=== PATIENT | male | born 1950 | race Caucasian/White ===

== ENCOUNTER 2018-02-06 15:57 | Emergency (ER) | payer MEDICARE, OTHER ==
[2018-02-06] MEDS: ONDANSETRON 4 MG INJ IV (20:33)
[2018-02-06] MEDS: SOD CHLORIDE 0.9% 500 ML IV (20:34)
[2018-02-06] MEDS: morphine 4 MG/ML VIAL IV (20:35)
[2018-02-06 20:40] LABS: ADD MAN DIFF? NO
[2018-02-06 20:43] LABS: WHITE BLOOD COUNT 9.5 10^3/ul (4.8-10.8)
[2018-02-06 20:43] LABS: BASOPHIL # 0.1 10^3/ul (0.0-0.1); BASOPHILS % 1.4 % (0.0-2.0); EOSINOPHILS # 1.5 10^3/ul (0.0-0.5); EOSINOPHILS % 15.6 % (0.0-7.0); HEMATOCRIT 44.2 % (42.0-52.0); HEMOGLOBIN 14.9 g/dl (14.0-18.0); LYMPHOCYTES # 2.4 10^3/ul (0.8-2.9); MEAN CORPUSCULAR HEMOGLOBIN 29.3 pg (29.0-33.0); MEAN CORPUSCULAR HGB CONC 33.7 g/dl (32.0-37.0); MEAN PLATELET VOLUME 9.6 fl (7.4-10.4); MONOCYTE # 0.9 10^3/ul (0.3-0.9); MONOCYTES % 9.5 % (0.0-11.0); NEUTROPHIL # 4.5 10^3/ul (1.6-7.5); NEUTROPHILS % 47.3 % (39.0-77.0); PLATELET COUNT 258 10^3/UL (140-415); RED BLOOD COUNT 5.08 10^6/ul (4.70-6.10); RED CELL DISTRIBUTION WIDTH 12.7 % (11.5-14.5)
[2018-02-06 20:58] LABS: INR 0.94; PARTIAL THROMBOPLASTIN TIME 28.5 Sec (25.0-35.0); PROTIME 12.7 Sec (11.9-14.9)
[2018-02-06 21:02] LABS: ALANINE AMINOTRANSFERASE 29 IU/L (13-69); ALBUMIN 3.8 g/dl (3.3-4.9); ALBUMIN/GLOBULIN RATIO 1.18; ALKALINE PHOSPHATASE 52 IU/L (42-121); ANION GAP 20 (8-16); ASPARTATE AMINO TRANSFERASE 26 IU/L (15-46); BILIRUBIN,INDIRECT 0.3 mg/dl (0-1.1); BILIRUBIN,TOTAL 0.3 mg/dl (0.2-1.3); BLOOD UREA NITROGEN 15 mg/dl (7-20); CALCIUM 8.9 mg/dl (8.4-10.2); CARBON DIOXIDE 21 mmol/L (21-31); CHLORIDE 100 mmol/L (97-110); CREATINE KINASE 55 IU/L (23-200); CREATININE 1.22 mg/dl (0.61-1.24); GLUCOSE 155 mg/dl (70-220); POTASSIUM 4.5 mmol/L (3.5-5.1); SODIUM 136 mmol/L (135-144)
[2018-02-06 21:13] LABS: B-TYPE NATRIURETIC PEPTIDE 1430 PG/ML (0-125); CK INDEX 3.3; TROPONIN-I 0.022 ng/ml (0.00-0.12)
[2018-02-06 21:22] LABS: CK-MB 1.84 ng/ml (0.0-2.4)
== END 2018-02-07 00:08 | disposition home or self-care (01) ==
LOC: E/R 02-07 00:08
DX: I73.9 Peripheral vascular disease, unspecified (principal); M79.671 Pain in right foot; E11.9 Type 2 diabetes mellitus without complications; I10 Essential (primary) hypertension; I50.9 Heart failure, unspecified; J44.9 Chronic obstructive pulmonary disease, unspecified; Z79.4 Long term (current) use of insulin; Z95.1 Presence of aortocoronary bypass graft; Z87.891 Personal history of nicotine dependence
CPT/HCPCS: 73630; 80053; 82550; 82553; 82962; 83880; 84484; 85025; 85610; 85730; 93005; 93971; 96374; 96375; 99285-25

== ENCOUNTER 2018-02-19 07:44 | Inpatient (IN) | payer MEDICARE, OTHER ==
[2018-02-19 09:15] LABS: ADD MAN DIFF? NO
[2018-02-19 09:25] LABS: WHITE BLOOD COUNT 16.3 10^3/ul (4.8-10.8)
[2018-02-19 09:25] LABS: BASOPHIL # 0.1 10^3/ul (0.0-0.1); BASOPHILS % 0.7 % (0.0-2.0); EOSINOPHILS # 0.5 10^3/ul (0.0-0.5); EOSINOPHILS % 2.8 % (0.0-7.0); HEMATOCRIT 40.1 % (42.0-52.0); HEMOGLOBIN 13.4 g/dl (14.0-18.0); LYMPHOCYTES # 1.3 10^3/ul (0.8-2.9); LYMPHOCYTES % 7.9 % (15.0-51.0); MEAN CORPUSCULAR HEMOGLOBIN 29.3 pg (29.0-33.0); MEAN CORPUSCULAR HGB CONC 33.4 g/dl (32.0-37.0); MEAN CORPUSCULAR VOLUME 87.7 fl (82.0-101.0); MEAN PLATELET VOLUME 9.9 fl (7.4-10.4); MONOCYTE # 1.1 10^3/ul (0.3-0.9); NEUTROPHIL # 13.2 10^3/ul (1.6-7.5); PLATELET COUNT 308 10^3/UL (140-415); RED BLOOD COUNT 4.57 10^6/ul (4.70-6.10); RED CELL DISTRIBUTION WIDTH 12.5 % (11.5-14.5)
[2018-02-19 09:36] LABS: INR 1.03; PROTIME 13.6 Sec (11.9-14.9); PT RATIO 1.1
[2018-02-19 09:37] LABS: PARTIAL THROMBOPLASTIN TIME 39.8 Sec (25.0-35.0)
[2018-02-19 09:40] LABS: ACETAMINOPHEN < 10.0 ug/ml (10.0-30.0)
[2018-02-19 09:40] LABS: ANION GAP 14 (8-16); BLOOD UREA NITROGEN 22 mg/dl (7-20); CALCIUM 9.1 mg/dl (8.4-10.2); CARBON DIOXIDE 28 mmol/L (21-31); CHLORIDE 102 mmol/L (97-110); CREATININE 1.05 mg/dl (0.61-1.24); GLUCOSE 251 mg/dl (70-220); POTASSIUM 4.1 mmol/L (3.5-5.1); SODIUM 140 mmol/L (135-144)
[2018-02-19] MEDS ORDERED: DOCUSATE SODIUM 100 MG CAP PO (13:00)
[2018-02-19] MEDS ORDERED: ACETAMINOPHEN 325 MG TAB PO ×2 (13:00→13:30)
[2018-02-19] MEDS: IOHEXOL 100 ML (13:24)
[2018-02-19] MEDS: SOD CHLORIDE 0.9% 100 ML (13:24)
[2018-02-19] MEDS: IOHEXOL 350MG/ML 50 ML BTL (13:24)
[2018-02-19] MEDS ORDERED: NACL 0.9% 3 ML SYG IV (13:30)
[2018-02-19] MEDS ORDERED: LABETALOL HCL 20MG INJ IV (13:30)
[2018-02-19] MEDS ORDERED: HEPARIN 25000 UNITS/250 ML 250 ML IV (13:30)
[2018-02-19] MEDS ORDERED: HEPARIN 1000 UNITS/ML 10 ML INJ IV ×2 (13:30)
[2018-02-19 14:15] LABS: ADD MAN DIFF? NO
[2018-02-19 14:19] LABS: WHITE BLOOD COUNT 15.8 10^3/ul (4.8-10.8)
[2018-02-19 14:19] LABS: BASOPHIL # 0.1 10^3/ul (0.0-0.1); BASOPHILS % 0.8 % (0.0-2.0); EOSINOPHILS # 0.5 10^3/ul (0.0-0.5); EOSINOPHILS % 3.4 % (0.0-7.0); HEMATOCRIT 38.9 % (42.0-52.0); HEMOGLOBIN 12.9 g/dl (14.0-18.0); LYMPHOCYTES # 1.5 10^3/ul (0.8-2.9); LYMPHOCYTES % 9.5 % (15.0-51.0); MEAN CORPUSCULAR HEMOGLOBIN 29.5 pg (29.0-33.0); MEAN CORPUSCULAR HGB CONC 33.2 g/dl (32.0-37.0); MEAN PLATELET VOLUME 9.9 fl (7.4-10.4); MONOCYTE # 1.4 10^3/ul (0.3-0.9); MONOCYTES % 8.7 % (0.0-11.0); NEUTROPHIL # 12.1 10^3/ul (1.6-7.5); NEUTROPHILS % 76.9 % (39.0-77.0); PLATELET COUNT 266 10^3/UL (140-415); RED BLOOD COUNT 4.37 10^6/ul (4.70-6.10); RED CELL DISTRIBUTION WIDTH 12.7 % (11.5-14.5)
[2018-02-19 14:40] LABS: INR 1.05; PROTIME 13.8 Sec (11.9-14.9); PT RATIO 1.1
[2018-02-19 14:41] LABS: PARTIAL THROMBOPLASTIN TIME 40.6 Sec (25.0-35.0)
[2018-02-19] MEDS: HEPARIN 1000 UNITS/ML 10 ML INJ IV (14:58)
[2018-02-19] MEDS: ONDANSETRON 4 MG INJ IV (14:59)
[2018-02-19] MEDS: morphine 2 MG INJ IV ×2 (15:00→20:35)
[2018-02-19] MEDS: SOD CHLORIDE 0.45% 1,000 ML IV (17:34)
[2018-02-19] MEDS: INSULIN ASPART [NOVOLOG] 3 ML PEN SC ×3 (18:00→20:33)
[2018-02-19] MEDS: FAMOTIDINE 20 MG TAB PO (20:32)
[2018-02-19] MEDS: INSULIN GLARGINE [LANtus] 3 ML PEN SC (20:34)
[2018-02-20 01:22] LABS: PARTIAL THROMBOPLASTIN TIME 86.9 Sec (25.0-35.0)
[2018-02-20] MEDS: ACCU-CHEK XX (02:00)
[2018-02-20] MEDS: morphine 2 MG INJ IV ×4 (05:48→21:17)
[2018-02-20] MEDS: hydrALAzine 20 MG INJ IV (05:48)
[2018-02-20] MEDS: PANTOPRAZOLE 40 MG INJ IV (05:48)
[2018-02-20 06:52] LABS: ADD MAN DIFF? NO
[2018-02-20 06:57] LABS: BASOPHIL # 0.1 10^3/ul (0.0-0.1); BASOPHILS % 0.7 % (0.0-2.0); EOSINOPHILS # 0.8 10^3/ul (0.0-0.5); EOSINOPHILS % 5.9 % (0.0-7.0); HEMATOCRIT 36.9 % (42.0-52.0); HEMOGLOBIN 12.5 g/dl (14.0-18.0); LYMPHOCYTES # 1.8 10^3/ul (0.8-2.9); LYMPHOCYTES % 13.2 % (15.0-51.0); MEAN CORPUSCULAR HEMOGLOBIN 29.7 pg (29.0-33.0); MEAN CORPUSCULAR HGB CONC 33.9 g/dl (32.0-37.0); MEAN CORPUSCULAR VOLUME 87.6 fl (82.0-101.0); MEAN PLATELET VOLUME 9.9 fl (7.4-10.4); MONOCYTE # 1.2 10^3/ul (0.3-0.9); MONOCYTES % 8.7 % (0.0-11.0); NEUTROPHIL # 9.6 10^3/ul (1.6-7.5); NEUTROPHILS % 70.7 % (39.0-77.0); PLATELET COUNT 295 10^3/UL (140-415); RED BLOOD COUNT 4.21 10^6/ul (4.70-6.10); RED CELL DISTRIBUTION WIDTH 12.5 % (11.5-14.5)
[2018-02-20 06:57] LABS: WHITE BLOOD COUNT 13.6 10^3/ul (4.8-10.8)
[2018-02-20 07:23] LABS: ALANINE AMINOTRANSFERASE 23 IU/L (13-69); ALBUMIN 2.7 g/dl (3.3-4.9); ALBUMIN/GLOBULIN RATIO 0.84; ALKALINE PHOSPHATASE 77 IU/L (42-121); ANION GAP 9 (8-16); ASPARTATE AMINO TRANSFERASE 13 IU/L (15-46); BILIRUBIN,INDIRECT 0.2 mg/dl (0-1.1); BILIRUBIN,TOTAL 0.2 mg/dl (0.2-1.3); BLOOD UREA NITROGEN 16 mg/dl (7-20); CALCIUM 8.3 mg/dl (8.4-10.2); CARBON DIOXIDE 25 mmol/L (21-31); CHLORIDE 104 mmol/L (97-110); CHOL/HDL RATIO 5.1 RATIO; CHOLESTEROL 145 mg/dl (100-200); CREATININE 0.84 mg/dl (0.61-1.24); GLUCOSE 185 mg/dl (70-220); HDL CHOLESTEROL 28 mg/dl (30-78); LDL CHOLESTEROL,CALCULATED 65 mg/dl; MAGNESIUM 1.7 mg/dl (1.7-2.5); POTASSIUM 3.9 mmol/L (3.5-5.1); SODIUM 134 mmol/L (135-144); TOTAL PROTEIN 5.9 g/dl (6.1-8.1); TRIGLYCERIDES 262 mg/dl (0-149)
[2018-02-20 07:46] LABS: HEMOGLOBIN A1C 7.4 % (0-5.9)
[2018-02-20 08:06] LABS: PARTIAL THROMBOPLASTIN TIME 74.2 Sec (25.0-35.0)
[2018-02-20] MEDS: LISINOPRIL 10 MG TAB PO (08:17)
[2018-02-20] MEDS: INSULIN ASPART [NOVOLOG] 3 ML PEN SC ×7 (08:26→21:00)
[2018-02-20] MEDS: SOD CHLORIDE 0.45% 1,000 ML IV (08:27)
[2018-02-20] MEDS ORDERED: HEPARIN 1000 UNITS/ML 10 ML INJ IV (10:30)
[2018-02-20] MEDS ORDERED: GLUCAGON 1 MG INJ IM (10:30)
[2018-02-20] MEDS ORDERED: DEXTROSE 50% 50 ML SYRINGE IV ×2 (10:30)
[2018-02-20] MEDS ORDERED: GLUCOSE GEL 15 GRAM TUBE PO ×2 (10:30)
[2018-02-20] MEDS ORDERED: GLUCOSE GEL 15 GRAM TUBE BUCCAL (10:30)
[2018-02-20] MEDS: LISINOPRIL 20 MG TAB PO (12:09)
[2018-02-20] MEDS: HEPARIN 25000 UNITS/250 ML 250 ML IV ×3 (12:18→21:00)
[2018-02-20 16:37] LABS: INR 1.11; PROTIME 14.5 Sec (11.9-14.9); PT RATIO 1.1
[2018-02-20 16:38] LABS: PARTIAL THROMBOPLASTIN TIME 63.6 Sec (25.0-35.0)
[2018-02-20] MEDS: FAMOTIDINE 20 MG TAB PO (21:16)
[2018-02-20] MEDS: INSULIN GLARGINE [LANtus] 3 ML PEN SC (21:20)
[2018-02-20 21:36] LABS: PARTIAL THROMBOPLASTIN TIME 77.6 Sec (25.0-35.0)
[2018-02-21] MEDS: ACCU-CHEK XX (02:00)
[2018-02-21 06:51] LABS: ADD MAN DIFF? NO
[2018-02-21] MEDS: SOD CHLORIDE 0.45% 1,000 ML IV (06:51)
[2018-02-21] MEDS: PANTOPRAZOLE 40 MG INJ IV (06:51)
[2018-02-21] MEDS: morphine 2 MG INJ IV ×4 (06:51→22:44)
[2018-02-21 07:01] LABS: BASOPHIL # 0.1 10^3/ul (0.0-0.1); BASOPHILS % 0.7 % (0.0-2.0); EOSINOPHILS # 0.7 10^3/ul (0.0-0.5); EOSINOPHILS % 5.5 % (0.0-7.0); HEMATOCRIT 35.8 % (42.0-52.0); LYMPHOCYTES # 1.2 10^3/ul (0.8-2.9); LYMPHOCYTES % 9.5 % (15.0-51.0); MEAN CORPUSCULAR HEMOGLOBIN 29.3 pg (29.0-33.0); MEAN CORPUSCULAR HGB CONC 33.5 g/dl (32.0-37.0); MEAN CORPUSCULAR VOLUME 87.5 fl (82.0-101.0); MEAN PLATELET VOLUME 9.7 fl (7.4-10.4); MONOCYTE # 1.2 10^3/ul (0.3-0.9); MONOCYTES % 9.6 % (0.0-11.0); NEUTROPHILS % 74.1 % (39.0-77.0); PLATELET COUNT 314 10^3/UL (140-415); RED BLOOD COUNT 4.09 10^6/ul (4.70-6.10); RED CELL DISTRIBUTION WIDTH 12.3 % (11.5-14.5)
[2018-02-21 07:01] LABS: WHITE BLOOD COUNT 12.1 10^3/ul (4.8-10.8)
[2018-02-21 07:19] LABS: PARTIAL THROMBOPLASTIN TIME 55.6 Sec (25.0-35.0)
[2018-02-21 07:21] LABS: ANION GAP 9 (8-16); BLOOD UREA NITROGEN 15 mg/dl (7-20); CALCIUM 8.2 mg/dl (8.4-10.2); CARBON DIOXIDE 26 mmol/L (21-31); CHLORIDE 104 mmol/L (97-110); CREATININE 0.93 mg/dl (0.61-1.24); GLUCOSE 144 mg/dl (70-220); PHOSPHORUS 3.6 mg/dl (2.5-4.9); POTASSIUM 4.2 mmol/L (3.5-5.1); SODIUM 135 mmol/L (135-144)
[2018-02-21] MEDS: INSULIN ASPART [NOVOLOG] 3 ML PEN SC ×7 (08:50→17:53)
[2018-02-21] MEDS: LISINOPRIL 20 MG TAB PO (08:51)
[2018-02-21] MEDS ORDERED: IODIXANOL LOCM 100 ML BTL ×2 (09:42→10:30)
[2018-02-21] MEDS ORDERED: LIDOCAINE 1% (MDV) 20 ML INJ (09:42)
[2018-02-21] MEDS ORDERED: HEPARIN 1000 UNITS/ML 10 ML INJ (09:42)
[2018-02-21] MEDS ORDERED: MIDAZOLAM 1 MG/ML 2 ML INJ (09:42)
[2018-02-21] MEDS ORDERED: SOD CHLORIDE 0.9% 500 ML (09:43)
[2018-02-21] MEDS ORDERED: FENTAnyl 50 MCG/ML VIAL (09:43)
[2018-02-21] MEDS: LACTATED RINGER'S 1,000 ML IV ×2 (13:35→21:42)
[2018-02-21] MEDS: HEPARIN 25000 UNITS/250 ML 250 ML IV (13:37)
[2018-02-21] MEDS: ASPIRIN (EC) 81 MG TAB PO (19:00)
[2018-02-21] MEDS: INSULIN GLARGINE [LANtus] 3 ML PEN SC (20:00)
[2018-02-21] MEDS: FAMOTIDINE 20 MG TAB PO (21:42)
[2018-02-21] MEDS: SOD CHLORIDE 0.9% 1,000 ML IV (22:41)
[2018-02-22] MEDS ORDERED: INSULIN ASPART [NOVOLOG] 3 ML PEN SC ×2 (01:00→21:00)
[2018-02-22] MEDS: Insulin NOVOLOG SS MILD Algorithm (NPO/TPN/ENTERAL FEEDS) SC ×5 (01:00→17:23)
[2018-02-22] MEDS: ACCU-CHEK XX (02:00)
[2018-02-22] MEDS: PANTOPRAZOLE 40 MG INJ IV (06:13)
[2018-02-22] MEDS: morphine 2 MG INJ IV ×4 (06:35→21:23)
[2018-02-22] MEDS: INSULIN ASPART [NOVOLOG] 3 ML PEN SC ×3 (08:00→17:21)
[2018-02-22] MEDS: LISINOPRIL 20 MG TAB PO (08:18)
[2018-02-22] MEDS: SOD CHLORIDE 0.9% 1,000 ML IV (08:18)
[2018-02-22] MEDS: ASPIRIN (EC) 81 MG TAB PO (08:19)
[2018-02-22 09:45] LABS: ADD MAN DIFF? NO
[2018-02-22 09:51] LABS: WHITE BLOOD COUNT 13.4 10^3/ul (4.8-10.8)
[2018-02-22 09:51] LABS: BASOPHIL # 0.1 10^3/ul (0.0-0.1); BASOPHILS % 0.5 % (0.0-2.0); EOSINOPHILS # 0.5 10^3/ul (0.0-0.5); EOSINOPHILS % 3.7 % (0.0-7.0); HEMATOCRIT 32.2 % (42.0-52.0); HEMOGLOBIN 10.7 g/dl (14.0-18.0); LYMPHOCYTES # 1.3 10^3/ul (0.8-2.9); LYMPHOCYTES % 9.5 % (15.0-51.0); MEAN CORPUSCULAR HEMOGLOBIN 29.3 pg (29.0-33.0); MEAN CORPUSCULAR HGB CONC 33.2 g/dl (32.0-37.0); MEAN CORPUSCULAR VOLUME 88.2 fl (82.0-101.0); MEAN PLATELET VOLUME 9.8 fl (7.4-10.4); MONOCYTE # 1.4 10^3/ul (0.3-0.9); MONOCYTES % 10.1 % (0.0-11.0); NEUTROPHIL # 10.1 10^3/ul (1.6-7.5); PLATELET COUNT 322 10^3/UL (140-415); RED BLOOD COUNT 3.65 10^6/ul (4.70-6.10); RED CELL DISTRIBUTION WIDTH 12.3 % (11.5-14.5)
[2018-02-22 10:13] LABS: CREATINE KINASE 51 IU/L (23-200)
[2018-02-22 10:15] LABS: MAGNESIUM 1.9 mg/dl (1.7-2.5)
[2018-02-22 10:15] LABS: PHOSPHORUS 2.7 mg/dl (2.5-4.9)
[2018-02-22 10:17] LABS: PARTIAL THROMBOPLASTIN TIME 71.3 Sec (25.0-35.0)
[2018-02-22 10:24] LABS: ALANINE AMINOTRANSFERASE 35 IU/L (13-69); ALBUMIN 2.2 g/dl (3.3-4.9); ALBUMIN/GLOBULIN RATIO 0.84; ALKALINE PHOSPHATASE 101 IU/L (42-121); ANION GAP 10 (8-16); ASPARTATE AMINO TRANSFERASE 28 IU/L (15-46); BILIRUBIN,INDIRECT 0.2 mg/dl (0-1.1); BILIRUBIN,TOTAL 0.2 mg/dl (0.2-1.3); BLOOD UREA NITROGEN 12 mg/dl (7-20); CALCIUM 7.2 mg/dl (8.4-10.2); CARBON DIOXIDE 24 mmol/L (21-31); CHLORIDE 105 mmol/L (97-110); CHOL/HDL RATIO 4.4 RATIO; CHOLESTEROL 128 mg/dl (100-200); CREATININE 0.74 mg/dl (0.61-1.24); GLUCOSE 156 mg/dl (70-220); HDL CHOLESTEROL 29 mg/dl (30-78); LDL CHOLESTEROL,CALCULATED 62 mg/dl; POTASSIUM 4.3 mmol/L (3.5-5.1); SODIUM 135 mmol/L (135-144); TOTAL PROTEIN 4.8 g/dl (6.1-8.1); TRIGLYCERIDES 184 mg/dl (0-149)
[2018-02-22 10:25] LABS: B-TYPE NATRIURETIC PEPTIDE 3320 PG/ML (0-125)
[2018-02-22 10:27] LABS: CK INDEX 1.7; CK-MB 0.86 ng/ml (0.0-2.4); TROPONIN-I 0.018 ng/ml (0.00-0.12)
[2018-02-22 10:31] LABS: FREE T4 (FREE THYROXINE) 1.32 ng/dl (0.78-2.44)
[2018-02-22 10:48] LABS: THYROID STIMULATING HORMONE 0.742 MIU/L (0.465-4.680)
[2018-02-22] MEDS: HEPARIN 25000 UNITS/250 ML 250 ML IV ×2 (10:57→17:31)
[2018-02-22] MEDS: REGADENOSON 0.4 MG/5 ML SYG (14:24)
[2018-02-22 16:57] LABS: PARTIAL THROMBOPLASTIN TIME 53.6 Sec (25.0-35.0)
[2018-02-22] MEDS: Insulin NOVOLOG SS MILD Algorithm (SS with meals and bedtime) SC (21:00)
[2018-02-22] MEDS: FAMOTIDINE 20 MG TAB PO (21:23)
[2018-02-22] MEDS: INSULIN GLARGINE [LANtus] 3 ML PEN SC (21:30)
[2018-02-23 00:36] LABS: PARTIAL THROMBOPLASTIN TIME 43.3 Sec (25.0-35.0)
[2018-02-23] MEDS: morphine 2 MG INJ IV ×4 (00:36→20:58)
[2018-02-23] MEDS: HEPARIN 1000 UNITS/ML 10 ML INJ IV (01:00)
[2018-02-23] MEDS: HEPARIN 25000 UNITS/250 ML 250 ML IV ×3 (01:02→16:41)
[2018-02-23] MEDS: ACCUCHECK AT 2AM (Patients on SS coverage) XX (02:00)
[2018-02-23] MEDS: PANTOPRAZOLE 40 MG INJ IV (06:12)
[2018-02-23] MEDS: Insulin NOVOLOG SS MILD Algorithm (SS with meals and bedtime) SC ×4 (07:30→21:00)
[2018-02-23] MEDS: LISINOPRIL 20 MG TAB PO ×2 (08:22→20:56)
[2018-02-23] MEDS: ASPIRIN (EC) 81 MG TAB PO (08:22)
[2018-02-23] MEDS: INSULIN ASPART [NOVOLOG] 3 ML PEN SC ×3 (08:23→17:21)
[2018-02-23] MEDS: HYDROCODONE/APAP (5/325) TAB PO ×2 (08:24→16:38)
[2018-02-23 08:50] LABS: ADD MAN DIFF? NO
[2018-02-23 08:54] LABS: ABNORMAL IP MESSAGE 1; BASOPHIL # 0.1 10^3/ul (0.0-0.1); BASOPHILS % 0.5 % (0.0-2.0); EOSINOPHILS # 0.6 10^3/ul (0.0-0.5); EOSINOPHILS % 3.9 % (0.0-7.0); HEMATOCRIT 34.3 % (42.0-52.0); HEMOGLOBIN 11.1 g/dl (14.0-18.0); LYMPHOCYTES # 1.4 10^3/ul (0.8-2.9); LYMPHOCYTES % 8.8 % (15.0-51.0); MEAN CORPUSCULAR HEMOGLOBIN 28.9 pg (29.0-33.0); MEAN CORPUSCULAR HGB CONC 32.4 g/dl (32.0-37.0); MEAN CORPUSCULAR VOLUME 89.3 fl (82.0-101.0); MONOCYTE # 1.6 10^3/ul (0.3-0.9); NEUTROPHIL # 11.7 10^3/ul (1.6-7.5); NEUTROPHILS % 75.3 % (39.0-77.0); PLATELET COUNT 381 10^3/UL (140-415); POSITIVE DIFF @See below; RED BLOOD COUNT 3.84 10^6/ul (4.70-6.10); RED CELL DISTRIBUTION WIDTH 12.3 % (11.5-14.5)
[2018-02-23 08:54] LABS: WHITE BLOOD COUNT 15.5 10^3/ul (4.8-10.8)
[2018-02-23 09:43] LABS: PARTIAL THROMBOPLASTIN TIME 98.9 Sec (25.0-35.0)
[2018-02-23] MEDS: FAMOTIDINE 20 MG TAB PO (20:58)
[2018-02-23] MEDS: INSULIN GLARGINE [LANtus] 3 ML PEN SC (21:09)
[2018-02-23 23:06] LABS: PARTIAL THROMBOPLASTIN TIME 24.2 Sec (25.0-35.0)
[2018-02-24] MEDS: HEPARIN 1000 UNITS/ML 10 ML INJ IV ×2 (00:55→16:42)
[2018-02-24] MEDS: HEPARIN 25000 UNITS/250 ML 250 ML IV ×4 (00:55→16:45)
[2018-02-24] MEDS: morphine 2 MG INJ IV ×5 (00:57→21:36)
[2018-02-24] MEDS: ACCUCHECK AT 2AM (Patients on SS coverage) XX (02:00)
[2018-02-24] MEDS: HYDROCODONE/APAP (5/325) TAB PO ×2 (05:21→21:36)
[2018-02-24] MEDS: PANTOPRAZOLE 40 MG INJ IV (05:22)
[2018-02-24 07:20] LABS: ADD MAN DIFF? NO
[2018-02-24 07:24] LABS: ABNORMAL IP MESSAGE 1; BASOPHIL # 0.1 10^3/ul (0.0-0.1); BASOPHILS % 0.5 % (0.0-2.0); EOSINOPHILS # 0.7 10^3/ul (0.0-0.5); EOSINOPHILS % 3.7 % (0.0-7.0); HEMATOCRIT 31.9 % (42.0-52.0); HEMOGLOBIN 10.4 g/dl (14.0-18.0); LYMPHOCYTES # 1.7 10^3/ul (0.8-2.9); LYMPHOCYTES % 9.6 % (15.0-51.0); MEAN CORPUSCULAR HEMOGLOBIN 29.1 pg (29.0-33.0); MEAN CORPUSCULAR HGB CONC 32.6 g/dl (32.0-37.0); MEAN CORPUSCULAR VOLUME 89.4 fl (82.0-101.0); MEAN PLATELET VOLUME 9.8 fl (7.4-10.4); MONOCYTE # 1.6 10^3/ul (0.3-0.9); MONOCYTES % 9.2 % (0.0-11.0); NEUTROPHIL # 13.2 10^3/ul (1.6-7.5); NEUTROPHILS % 75.2 % (39.0-77.0); PLATELET COUNT 395 10^3/UL (140-415); POSITIVE DIFF @See below; RED BLOOD COUNT 3.57 10^6/ul (4.70-6.10); RED CELL DISTRIBUTION WIDTH 12.7 % (11.5-14.5)
[2018-02-24 07:24] LABS: WHITE BLOOD COUNT 17.6 10^3/ul (4.8-10.8)
[2018-02-24] MEDS: Insulin NOVOLOG SS MILD Algorithm (SS with meals and bedtime) SC ×4 (07:30→21:00)
[2018-02-24] MEDS: ASPIRIN (EC) 81 MG TAB PO (08:35)
[2018-02-24] MEDS: INSULIN ASPART [NOVOLOG] 3 ML PEN SC ×3 (08:35→16:54)
[2018-02-24] MEDS: SPIRONOLACTONE 25 MG TAB PO (08:36)
[2018-02-24] MEDS: LISINOPRIL 20 MG TAB PO ×2 (08:36→21:30)
[2018-02-24 08:52] LABS: PARTIAL THROMBOPLASTIN TIME 129.8 Sec (25.0-35.0)
[2018-02-24] MEDS: FAMOTIDINE 20 MG TAB PO (21:29)
[2018-02-24] MEDS: INSULIN GLARGINE [LANtus] 3 ML PEN SC (21:49)
[2018-02-24 23:54] LABS: PARTIAL THROMBOPLASTIN TIME 98.3 Sec (25.0-35.0)
[2018-02-25] MEDS: ACCUCHECK AT 2AM (Patients on SS coverage) XX
[2018-02-25] MEDS: PANTOPRAZOLE 40 MG INJ IV (05:15)
[2018-02-25] MEDS: Insulin NOVOLOG SS MILD Algorithm (SS with meals and bedtime) SC ×4 (07:30→21:00)
[2018-02-25] MEDS ORDERED: GELATIN SIZE 100 SPONGE (07:41)
[2018-02-25] MEDS ORDERED: THROMBIN 5000 UNIT VIAL (07:41)
[2018-02-25] MEDS ORDERED: HEPARIN 1000 UNITS/ML 10 ML INJ ×2 (07:42→09:47)
[2018-02-25] MEDS: INSULIN ASPART [NOVOLOG] 3 ML PEN SC ×2 (07:55→17:36)
[2018-02-25] MEDS: SOD CHLORIDE 0.9% 250 ML IV* (08:00)
[2018-02-25] MEDS ORDERED: FENTAnyl 50 MCG/ML VIAL ×2 (08:08→11:33)
[2018-02-25] MEDS: HEPARIN 1000 UNITS/ML 10 ML INJ IRR (08:15)
[2018-02-25] MEDS: SPIRONOLACTONE 25 MG TAB PO (09:00)
[2018-02-25] MEDS: LISINOPRIL 20 MG TAB PO ×2 (09:00→21:01)
[2018-02-25] MEDS: ASPIRIN (EC) 81 MG TAB PO (09:00)
[2018-02-25] MEDS: GELATIN SIZE 100 SPONGE TOP (10:27)
[2018-02-25] MEDS: THROMBIN 5000 UNIT VIAL TOP (10:28)
[2018-02-25] MEDS ORDERED: CEFAZOLIN 1 GM INJ (11:17)
[2018-02-25] MEDS ORDERED: SUGAMMADEX SODIUM 200 MG/2 ML VIAL IV (11:17)
[2018-02-25] MEDS ORDERED: ETOMIDATE 20 MG INJ (11:17)
[2018-02-25] MEDS ORDERED: SUCCINYLCHOLINE CHLORIDE 100 MG/5 ML SYG IV (11:17)
[2018-02-25] MEDS ORDERED: PROPOFOL 20 ML (11:17)
[2018-02-25] MEDS ORDERED: ROCURONIUM 50 MG INJ (11:17)
[2018-02-25] MEDS ORDERED: hydrALAzine 20 MG INJ (11:27)
[2018-02-25] MEDS ORDERED: METOCLOPRAMIDE 10 MG INJ IV (11:30)
[2018-02-25] MEDS ORDERED: ONDANSETRON 4 MG INJ IV (11:30)
[2018-02-25] MEDS ORDERED: LABETALOL HCL 20MG INJ IV (11:30)
[2018-02-25] MEDS ORDERED: HYDROmorphONE (0.2 MG/ML) 10ML SYG IV ×2 (11:30)
[2018-02-25] MEDS: DIPHENHYDRAMINE 50 MG INJ IV (12:26)
[2018-02-25] MEDS: FENTAnyl 50 MCG/ML VIAL IV ×3 (12:34→15:14)
[2018-02-25] MEDS: HEPARIN 25000 UNITS/250 ML 250 ML IV (13:39)
[2018-02-25] MEDS: HYDROmorphONE (0.2 MG/ML) 10ML SYG IV (13:46)
[2018-02-25] MEDS: hydrALAzine 20 MG INJ IV ×2 (14:41→17:35)
[2018-02-25] MEDS: morphine 2 MG INJ IV ×3 (16:06→22:55)
[2018-02-25] MEDS: LACTATED RINGER'S 1,000 ML IV (16:06)
[2018-02-25 16:42] LABS: ADD MAN DIFF? NO
[2018-02-25 16:43] LABS: WHITE BLOOD COUNT 19.5 10^3/ul (4.8-10.8)
[2018-02-25 16:43] LABS: ABNORMAL IP MESSAGE 1; BASOPHIL # 0.1 10^3/ul (0.0-0.1); BASOPHILS % 0.5 % (0.0-2.0); EOSINOPHILS # 0.8 10^3/ul (0.0-0.5); EOSINOPHILS % 3.8 % (0.0-7.0); HEMATOCRIT 32.3 % (42.0-52.0); HEMOGLOBIN 10.5 g/dl (14.0-18.0); LYMPHOCYTES # 1.8 10^3/ul (0.8-2.9); LYMPHOCYTES % 9.3 % (15.0-51.0); MEAN CORPUSCULAR HGB CONC 32.5 g/dl (32.0-37.0); MEAN CORPUSCULAR VOLUME 89.2 fl (82.0-101.0); MEAN PLATELET VOLUME 9.4 fl (7.4-10.4); MONOCYTE # 1.7 10^3/ul (0.3-0.9); MONOCYTES % 8.6 % (0.0-11.0); NEUTROPHIL # 14.8 10^3/ul (1.6-7.5); PLATELET COUNT 497 10^3/UL (140-415); POSITIVE DIFF @See below; RED BLOOD COUNT 3.62 10^6/ul (4.70-6.10); RED CELL DISTRIBUTION WIDTH 13.1 % (11.5-14.5)
[2018-02-25] MEDS ORDERED: HEPARIN 1000 UNITS/ML 10 ML INJ IV (17:30)
[2018-02-25] MEDS: FAMOTIDINE 20 MG TAB PO (21:01)
[2018-02-25] MEDS: INSULIN GLARGINE [LANtus] 3 ML PEN SC (21:37)
[2018-02-25 23:37] LABS: INR 1.16; PT RATIO 1.2
[2018-02-25 23:38] LABS: PARTIAL THROMBOPLASTIN TIME 39.3 Sec (25.0-35.0)
[2018-02-26] MEDS: HEPARIN 1000 UNITS/ML 10 ML INJ IV (00:06)
[2018-02-26] MEDS: HEPARIN 25000 UNITS/250 ML 250 ML IV (00:21)
[2018-02-26] MEDS: LACTATED RINGER'S 1,000 ML IV ×2 (00:50→05:54)
[2018-02-26] MEDS: ACCUCHECK AT 2AM (Patients on SS coverage) XX (02:00)
[2018-02-26 04:55] LABS: PARTIAL THROMBOPLASTIN TIME 84.9 Sec (25.0-35.0)
[2018-02-26] MEDS: PANTOPRAZOLE 40 MG INJ IV (05:54)
[2018-02-26] MEDS: Insulin NOVOLOG SS MILD Algorithm (SS with meals and bedtime) SC ×4 (08:09→20:53)
[2018-02-26] MEDS: INSULIN ASPART [NOVOLOG] 3 ML PEN SC ×3 (08:11→17:29)
[2018-02-26] MEDS: ASPIRIN (EC) 81 MG TAB PO (08:48)
[2018-02-26] MEDS: SPIRONOLACTONE 25 MG TAB PO (08:48)
[2018-02-26] MEDS: LISINOPRIL 20 MG TAB PO ×2 (08:49→20:53)
[2018-02-26] MEDS: HYDROCODONE/APAP (5/325) TAB PO ×3 (11:42→23:22)
[2018-02-26] MEDS: APIXABAN 5 MG TABLET PO ×2 (11:52→20:52)
[2018-02-26] MEDS: INSULIN GLARGINE [LANtus] 3 ML PEN SC (20:49)
[2018-02-26] MEDS: LACTOBACILLUS RHAMNOSUS CAP PO (20:51)
[2018-02-26] MEDS: FAMOTIDINE 20 MG TAB PO (20:53)
[2018-02-27] MEDS: ACCUCHECK AT 2AM (Patients on SS coverage) XX (02:00)
[2018-02-27] MEDS: HYDROCODONE/APAP (5/325) TAB PO (04:37)
[2018-02-27 06:19] LABS: ADD MAN DIFF? NO
[2018-02-27 06:23] LABS: WHITE BLOOD COUNT 21.1 10^3/ul (4.8-10.8)
[2018-02-27 06:23] LABS: ABNORMAL IP MESSAGE 1; BASOPHIL # 0.1 10^3/ul (0.0-0.1); BASOPHILS % 0.4 % (0.0-2.0); EOSINOPHILS # 0.6 10^3/ul (0.0-0.5); EOSINOPHILS % 2.7 % (0.0-7.0); HEMATOCRIT 27.9 % (42.0-52.0); HEMOGLOBIN 9.2 g/dl (14.0-18.0); LYMPHOCYTES # 1.5 10^3/ul (0.8-2.9); MEAN CORPUSCULAR HEMOGLOBIN 29.8 pg (29.0-33.0); MEAN CORPUSCULAR VOLUME 90.3 fl (82.0-101.0); MEAN PLATELET VOLUME 9.3 fl (7.4-10.4); MONOCYTE # 2.1 10^3/ul (0.3-0.9); MONOCYTES % 9.8 % (0.0-11.0); NEUTROPHIL # 16.2 10^3/ul (1.6-7.5); NEUTROPHILS % 76.6 % (39.0-77.0); PLATELET COUNT 498 10^3/UL (140-415); POSITIVE DIFF @See below; RED BLOOD COUNT 3.09 10^6/ul (4.70-6.10); RED CELL DISTRIBUTION WIDTH 13.2 % (11.5-14.5)
[2018-02-27 06:51] LABS: ALANINE AMINOTRANSFERASE 37 IU/L (13-69); ALBUMIN 2.6 g/dl (3.3-4.9); ALBUMIN/GLOBULIN RATIO 0.83; ALKALINE PHOSPHATASE 118 IU/L (42-121); ANION GAP 11 (8-16); ASPARTATE AMINO TRANSFERASE 31 IU/L (15-46); BILIRUBIN,INDIRECT 0.2 mg/dl (0-1.1); BILIRUBIN,TOTAL 0.2 mg/dl (0.2-1.3); BLOOD UREA NITROGEN 15 mg/dl (7-20); CARBON DIOXIDE 25 mmol/L (21-31); CHLORIDE 105 mmol/L (97-110); CREATININE 0.83 mg/dl (0.61-1.24); GLUCOSE 145 mg/dl (70-220); MAGNESIUM 2.1 mg/dl (1.7-2.5); PHOSPHORUS 3.2 mg/dl (2.5-4.9); POTASSIUM 4.2 mmol/L (3.5-5.1); SODIUM 137 mmol/L (135-144); TOTAL PROTEIN 5.7 g/dl (6.1-8.1)
[2018-02-27] MEDS ORDERED: FAMOTIDINE 20 MG TAB PO (09:00)
[2018-02-27] MEDS: Insulin NOVOLOG SS MILD Algorithm (SS with meals and bedtime) SC ×4 (09:21→20:33)
[2018-02-27] MEDS: INSULIN ASPART [NOVOLOG] 3 ML PEN SC ×3 (09:21→17:33)
[2018-02-27] MEDS: LACTOBACILLUS RHAMNOSUS CAP PO ×2 (09:22→20:29)
[2018-02-27] MEDS: ASPIRIN (EC) 81 MG TAB PO (09:22)
[2018-02-27] MEDS: LISINOPRIL 20 MG TAB PO ×2 (09:22→20:29)
[2018-02-27] MEDS: APIXABAN 5 MG TABLET PO ×2 (09:23→20:29)
[2018-02-27] MEDS: SPIRONOLACTONE 25 MG TAB PO (09:23)
[2018-02-27] MEDS: HYDROCODONE/APAP (10/325) TAB PO ×3 (13:02→23:58)
[2018-02-27] MEDS: FAMOTIDINE 20 MG TAB PO (20:29)
[2018-02-27] MEDS: INSULIN GLARGINE [LANtus] 3 ML PEN SC (20:39)
[2018-02-28] MEDS: ACCUCHECK AT 2AM (Patients on SS coverage) XX (01:36)
[2018-02-28] MEDS: hydrALAzine 20 MG INJ IV (04:32)
[2018-02-28] MEDS: morphine 2 MG INJ IV ×3 (04:34→20:11)
[2018-02-28] MEDS: HYDROCODONE/APAP (10/325) TAB PO ×3 (08:12→22:44)
[2018-02-28] MEDS: ASPIRIN (EC) 81 MG TAB PO (08:15)
[2018-02-28] MEDS: SPIRONOLACTONE 25 MG TAB PO (08:16)
[2018-02-28] MEDS: LISINOPRIL 20 MG TAB PO ×2 (08:16→20:10)
[2018-02-28] MEDS: APIXABAN 5 MG TABLET PO ×2 (08:16→20:10)
[2018-02-28] MEDS: LACTOBACILLUS RHAMNOSUS CAP PO ×2 (08:16→20:10)
[2018-02-28] MEDS: Insulin NOVOLOG SS MILD Algorithm (SS with meals and bedtime) SC ×4 (08:22→21:00)
[2018-02-28] MEDS: INSULIN ASPART [NOVOLOG] 3 ML PEN SC ×3 (08:23→17:36)
[2018-02-28 08:48] LABS: ADD MAN DIFF? NO
[2018-02-28 08:53] LABS: WHITE BLOOD COUNT 20.5 10^3/ul (4.8-10.8)
[2018-02-28 08:54] LABS: ABNORMAL IP MESSAGE 1; BASOPHIL # 0.1 10^3/ul (0.0-0.1); BASOPHILS % 0.7 % (0.0-2.0); EOSINOPHILS # 0.7 10^3/ul (0.0-0.5); EOSINOPHILS % 3.5 % (0.0-7.0); HEMATOCRIT 30.3 % (42.0-52.0); HEMOGLOBIN 9.8 g/dl (14.0-18.0); LYMPHOCYTES # 1.7 10^3/ul (0.8-2.9); LYMPHOCYTES % 8.3 % (15.0-51.0); MEAN CORPUSCULAR HEMOGLOBIN 29.5 pg (29.0-33.0); MEAN CORPUSCULAR HGB CONC 32.3 g/dl (32.0-37.0); MEAN CORPUSCULAR VOLUME 91.3 fl (82.0-101.0); MEAN PLATELET VOLUME 9.5 fl (7.4-10.4); MONOCYTE # 1.7 10^3/ul (0.3-0.9); MONOCYTES % 8.2 % (0.0-11.0); NEUTROPHIL # 15.4 10^3/ul (1.6-7.5); NEUTROPHILS % 75.1 % (39.0-77.0); PLATELET COUNT 623 10^3/UL (140-415); POSITIVE DIFF @See below; RED BLOOD COUNT 3.32 10^6/ul (4.70-6.10); RED CELL DISTRIBUTION WIDTH 13.2 % (11.5-14.5)
[2018-02-28 09:21] LABS: ALANINE AMINOTRANSFERASE 37 IU/L (13-69); ALBUMIN 2.9 g/dl (3.3-4.9); ALBUMIN/GLOBULIN RATIO 0.82; ALKALINE PHOSPHATASE 134 IU/L (42-121); ANION GAP 13 (8-16); ASPARTATE AMINO TRANSFERASE 30 IU/L (15-46); BILIRUBIN,INDIRECT 0.1 mg/dl (0-1.1); BILIRUBIN,TOTAL 0.1 mg/dl (0.2-1.3); BLOOD UREA NITROGEN 18 mg/dl (7-20); CALCIUM 8.2 mg/dl (8.4-10.2); CARBON DIOXIDE 24 mmol/L (21-31); CHLORIDE 103 mmol/L (97-110); CREATININE 0.81 mg/dl (0.61-1.24); GLUCOSE 172 mg/dl (70-220); PHOSPHORUS 4.2 mg/dl (2.5-4.9); POTASSIUM 4.3 mmol/L (3.5-5.1); SODIUM 136 mmol/L (135-144); TOTAL PROTEIN 6.4 g/dl (6.1-8.1)
[2018-02-28] MEDS: FAMOTIDINE 20 MG TAB PO (20:11)
[2018-02-28] MEDS: INSULIN GLARGINE [LANtus] 3 ML PEN SC (20:39)
[2018-03-01] MEDS: morphine 2 MG INJ IV ×5 (00:12→23:38)
[2018-03-01] MEDS: ACCUCHECK AT 2AM (Patients on SS coverage) XX (01:28)
[2018-03-01 06:23] LABS: ADD UMIC YES; UR ASCORBIC ACID NEGATIVE (NEGATIVE); UR BILIRUBIN (Dip) NEGATIVE (NEGATIVE); UR BLOOD (Dip) 1+ mg/dL (NEGATIVE); UR CLARITY CLEAR (CLEAR); UR COLOR YELLOW (YELLOW); UR GLUCOSE (Dip) NEGATIVE (NEGATIVE); UR KETONES (Dip) TRACE mg/dL (NEGATIVE); UR LEUKOCYTE ESTERASE (Dip) NEGATIVE Leu/ul (NEGATIVE); UR NITRITE (Dip) NEGATIVE (NEGATIVE); UR RBC 11 /HPF (0-5); UR SPECIFIC GRAVITY (Dip) 1.022 (1.003-1.030); UR TOTAL PROTEIN (Dip) 3+ mg/dl (NEGATIVE); UR UROBILINOGEN (Dip) NEGATIVE (NEGATIVE); UR WBC 3 /HPF (0-5)
[2018-03-01] MEDS: INSULIN ASPART [NOVOLOG] 3 ML PEN SC ×3 (08:00→17:14)
[2018-03-01] MEDS: APIXABAN 5 MG TABLET PO ×2 (08:28→20:57)
[2018-03-01] MEDS: SPIRONOLACTONE 25 MG TAB PO (08:30)
[2018-03-01] MEDS: ASPIRIN (EC) 81 MG TAB PO (08:30)
[2018-03-01] MEDS: HYDROCODONE/APAP (10/325) TAB PO (08:30)
[2018-03-01] MEDS: LISINOPRIL 20 MG TAB PO ×2 (08:31→20:57)
[2018-03-01] MEDS: LACTOBACILLUS RHAMNOSUS CAP PO ×2 (08:31→20:56)
[2018-03-01] MEDS: Insulin NOVOLOG SS MILD Algorithm (SS with meals and bedtime) SC ×4 (08:37→21:00)
[2018-03-01 09:02] LABS: ADD MAN DIFF? NO
[2018-03-01 09:11] LABS: WHITE BLOOD COUNT 16.8 10^3/ul (4.8-10.8)
[2018-03-01 09:11] LABS: ABNORMAL IP MESSAGE 1; BASOPHIL # 0.1 10^3/ul (0.0-0.1); BASOPHILS % 0.4 % (0.0-2.0); EOSINOPHILS # 0.7 10^3/ul (0.0-0.5); EOSINOPHILS % 4.4 % (0.0-7.0); HEMATOCRIT 29.4 % (42.0-52.0); HEMOGLOBIN 9.2 g/dl (14.0-18.0); LYMPHOCYTES # 1.6 10^3/ul (0.8-2.9); LYMPHOCYTES % 9.6 % (15.0-51.0); MEAN CORPUSCULAR HEMOGLOBIN 28.5 pg (29.0-33.0); MEAN CORPUSCULAR HGB CONC 31.3 g/dl (32.0-37.0); MEAN PLATELET VOLUME 9.2 fl (7.4-10.4); MONOCYTE # 1.5 10^3/ul (0.3-0.9); NEUTROPHIL # 12.4 10^3/ul (1.6-7.5); NEUTROPHILS % 73.6 % (39.0-77.0); PLATELET COUNT 594 10^3/UL (140-415); POSITIVE DIFF @See below; RED BLOOD COUNT 3.23 10^6/ul (4.70-6.10); RED CELL DISTRIBUTION WIDTH 13.2 % (11.5-14.5)
[2018-03-01 09:53] LABS: ANION GAP 9 (8-16); BLOOD UREA NITROGEN 20 mg/dl (7-20); CALCIUM 8.3 mg/dl (8.4-10.2); CARBON DIOXIDE 29 mmol/L (21-31); CHLORIDE 104 mmol/L (97-110); GLUCOSE 58 mg/dl (70-220); MAGNESIUM 2.1 mg/dl (1.7-2.5); PHOSPHORUS 4.4 mg/dl (2.5-4.9); POTASSIUM 4.4 mmol/L (3.5-5.1); SODIUM 138 mmol/L (135-144)
[2018-03-01] MEDS: FAMOTIDINE 20 MG TAB PO (20:56)
[2018-03-01] MEDS: INSULIN GLARGINE [LANtus] 3 ML PEN SC (21:00)
[2018-03-02] MEDS: HYDROCODONE/APAP (10/325) TAB PO ×2 (01:46→09:04)
[2018-03-02] MEDS: ACCUCHECK AT 2AM (Patients on SS coverage) XX (01:48)
[2018-03-02] MEDS: morphine 2 MG INJ IV ×4 (03:13→20:55)
[2018-03-02] MEDS: DOCUSATE SODIUM 100 MG CAP PO (06:31)
[2018-03-02 07:28] LABS: ADD MAN DIFF? NO
[2018-03-02] MEDS: Insulin NOVOLOG SS MILD Algorithm (SS with meals and bedtime) SC ×4 (07:30→21:00)
[2018-03-02 07:32] LABS: ABNORMAL IP MESSAGE 1; BASOPHIL # 0.1 10^3/ul (0.0-0.1); BASOPHILS % 0.7 % (0.0-2.0); EOSINOPHILS # 0.7 10^3/ul (0.0-0.5); EOSINOPHILS % 4.2 % (0.0-7.0); HEMATOCRIT 28.2 % (42.0-52.0); HEMOGLOBIN 8.9 g/dl (14.0-18.0); LYMPHOCYTES # 1.7 10^3/ul (0.8-2.9); LYMPHOCYTES % 10.6 % (15.0-51.0); MEAN CORPUSCULAR HGB CONC 31.6 g/dl (32.0-37.0); MEAN CORPUSCULAR VOLUME 91.9 fl (82.0-101.0); MONOCYTE # 1.6 10^3/ul (0.3-0.9); MONOCYTES % 9.5 % (0.0-11.0); NEUTROPHIL # 11.9 10^3/ul (1.6-7.5); NEUTROPHILS % 72.8 % (39.0-77.0); PLATELET COUNT 584 10^3/UL (140-415); POSITIVE DIFF @See below; RED BLOOD COUNT 3.07 10^6/ul (4.70-6.10)
[2018-03-02 07:32] LABS: WHITE BLOOD COUNT 16.3 10^3/ul (4.8-10.8)
[2018-03-02 07:54] LABS: ANION GAP 6 (8-16); BLOOD UREA NITROGEN 19 mg/dl (7-20); CALCIUM 8.4 mg/dl (8.4-10.2); CARBON DIOXIDE 32 mmol/L (21-31); CHLORIDE 103 mmol/L (97-110); CREATININE 0.86 mg/dl (0.61-1.24); GLUCOSE 136 mg/dl (70-220); PHOSPHORUS 4.3 mg/dl (2.5-4.9); SODIUM 136 mmol/L (135-144)
[2018-03-02] MEDS: LACTOBACILLUS RHAMNOSUS CAP PO ×2 (09:05→20:42)
[2018-03-02] MEDS: ASPIRIN (EC) 81 MG TAB PO (09:05)
[2018-03-02] MEDS: LISINOPRIL 20 MG TAB PO ×2 (09:05→20:42)
[2018-03-02] MEDS: APIXABAN 5 MG TABLET PO ×2 (09:05→20:42)
[2018-03-02] MEDS: SPIRONOLACTONE 25 MG TAB PO (09:05)
[2018-03-02] MEDS: INSULIN ASPART [NOVOLOG] 3 ML PEN SC ×3 (09:09→18:40)
[2018-03-02] MEDS: FAMOTIDINE 20 MG TAB PO (20:42)
[2018-03-02] MEDS: INSULIN GLARGINE [LANtus] 3 ML PEN SC (20:43)
[2018-03-03] MEDS: morphine 2 MG INJ IV ×5 (00:20→16:25)
[2018-03-03] MEDS: DOCUSATE SODIUM 100 MG CAP PO (02:36)
[2018-03-03] MEDS: ACCUCHECK AT 2AM (Patients on SS coverage) XX (02:42)
[2018-03-03] MEDS ORDERED: EPHEDrine SULFATE 50 MG/5 ML SYG (07:00)
[2018-03-03] MEDS: Insulin NOVOLOG SS MILD Algorithm (SS with meals and bedtime) SC ×4 (07:30→21:00)
[2018-03-03] MEDS: INSULIN ASPART [NOVOLOG] 3 ML PEN SC ×4 (07:53→17:15)
[2018-03-03 08:39] LABS: ADD MAN DIFF? NO
[2018-03-03 08:49] LABS: ABNORMAL IP MESSAGE 1; BASOPHIL # 0.1 10^3/ul (0.0-0.1); BASOPHILS % 0.7 % (0.0-2.0); EOSINOPHILS # 0.6 10^3/ul (0.0-0.5); EOSINOPHILS % 3.5 % (0.0-7.0); HEMATOCRIT 29.4 % (42.0-52.0); HEMOGLOBIN 9.3 g/dl (14.0-18.0); LYMPHOCYTES # 1.5 10^3/ul (0.8-2.9); LYMPHOCYTES % 8.3 % (15.0-51.0); MEAN CORPUSCULAR HEMOGLOBIN 28.8 pg (29.0-33.0); MEAN CORPUSCULAR HGB CONC 31.6 g/dl (32.0-37.0); MEAN PLATELET VOLUME 9.2 fl (7.4-10.4); MONOCYTE # 1.6 10^3/ul (0.3-0.9); NEUTROPHIL # 13.4 10^3/ul (1.6-7.5); NEUTROPHILS % 76.5 % (39.0-77.0); PLATELET COUNT 624 10^3/UL (140-415); POSITIVE DIFF @See below; RED BLOOD COUNT 3.23 10^6/ul (4.70-6.10)
[2018-03-03 08:49] LABS: WHITE BLOOD COUNT 17.5 10^3/ul (4.8-10.8)
[2018-03-03] MEDS: LISINOPRIL 20 MG TAB PO ×2 (09:00→21:46)
[2018-03-03] MEDS: LACTOBACILLUS RHAMNOSUS CAP PO ×2 (09:00→21:45)
[2018-03-03] MEDS: SPIRONOLACTONE 25 MG TAB PO (09:00)
[2018-03-03] MEDS: APIXABAN 5 MG TABLET PO ×2 (09:00→21:47)
[2018-03-03] MEDS: ASPIRIN (EC) 81 MG TAB PO (09:00)
[2018-03-03 09:14] LABS: ANION GAP 16 (8-16); BLOOD UREA NITROGEN 16 mg/dl (7-20); CALCIUM 8.3 mg/dl (8.4-10.2); CARBON DIOXIDE 25 mmol/L (21-31); CHLORIDE 100 mmol/L (97-110); CREATININE 0.81 mg/dl (0.61-1.24); GLUCOSE 106 mg/dl (70-220); MAGNESIUM 1.9 mg/dl (1.7-2.5); PHOSPHORUS 4.2 mg/dl (2.5-4.9); SODIUM 136 mmol/L (135-144)
[2018-03-03] MEDS: HYDROCODONE/APAP (10/325) TAB PO (12:18)
[2018-03-03] MEDS: SOD CHLORIDE 0.45% 1,000 ML IV (13:56)
[2018-03-03] MEDS ORDERED: PROPOFOL 20 ML (18:28)
[2018-03-03] MEDS ORDERED: ROPIVACAINE 0.5 % 30 ML VIAL (18:28)
[2018-03-03] MEDS ORDERED: ONDANSETRON 4 MG INJ (18:28)
[2018-03-03] MEDS ORDERED: MIDAZOLAM 1 MG/ML 2 ML INJ (18:28)
[2018-03-03] MEDS ORDERED: METOCLOPRAMIDE 10 MG INJ (18:28)
[2018-03-03] MEDS ORDERED: FENTAnyl 50 MCG/ML VIAL (19:01)
[2018-03-03] MEDS: POLYMYXIN/BACITRACIN 1L IRRIG (19:19)
[2018-03-03] MEDS ORDERED: HYDROmorphONE (0.2 MG/ML) 10ML SYG IV ×3 (20:00)
[2018-03-03] MEDS ORDERED: ONDANSETRON 4 MG INJ IV (20:00)
[2018-03-03] MEDS: INSULIN GLARGINE [LANtus] 3 ML PEN SC (20:00)
[2018-03-03] MEDS: FAMOTIDINE 20 MG TAB PO (21:45)
[2018-03-04] MEDS: HYDROCODONE/APAP (10/325) TAB PO (00:09)
[2018-03-04] MEDS: SOD CHLORIDE 0.45% 1,000 ML IV ×2 (01:30→06:05)
[2018-03-04] MEDS: ACCUCHECK AT 2AM (Patients on SS coverage) XX (02:00)
[2018-03-04] MEDS: morphine 2 MG INJ IV ×4 (06:01→21:23)
[2018-03-04] MEDS: Insulin NOVOLOG SS MILD Algorithm (SS with meals and bedtime) SC ×4 (07:30→21:00)
[2018-03-04] MEDS: LACTOBACILLUS RHAMNOSUS CAP PO ×2 (08:20→21:25)
[2018-03-04] MEDS: APIXABAN 5 MG TABLET PO (08:20)
[2018-03-04] MEDS: ASPIRIN (EC) 81 MG TAB PO (08:20)
[2018-03-04] MEDS: LISINOPRIL 20 MG TAB PO ×2 (08:21→21:27)
[2018-03-04] MEDS: SPIRONOLACTONE 25 MG TAB PO (08:21)
[2018-03-04] MEDS: INSULIN ASPART [NOVOLOG] 3 ML PEN SC ×3 (08:25→17:27)
[2018-03-04 08:55] LABS: ADD MAN DIFF? NO
[2018-03-04 08:57] LABS: WHITE BLOOD COUNT 13.6 10^3/ul (4.8-10.8)
[2018-03-04 08:57] LABS: BASOPHIL # 0.1 10^3/ul (0.0-0.1); BASOPHILS % 0.7 % (0.0-2.0); EOSINOPHILS # 0.6 10^3/ul (0.0-0.5); EOSINOPHILS % 4.5 % (0.0-7.0); HEMATOCRIT 28.3 % (42.0-52.0); HEMOGLOBIN 8.9 g/dl (14.0-18.0); LYMPHOCYTES # 1.5 10^3/ul (0.8-2.9); LYMPHOCYTES % 11.1 % (15.0-51.0); MEAN CORPUSCULAR HEMOGLOBIN 28.5 pg (29.0-33.0); MEAN CORPUSCULAR HGB CONC 31.4 g/dl (32.0-37.0); MEAN CORPUSCULAR VOLUME 90.7 fl (82.0-101.0); MONOCYTE # 1.4 10^3/ul (0.3-0.9); MONOCYTES % 10.5 % (0.0-11.0); NEUTROPHIL # 9.6 10^3/ul (1.6-7.5); NEUTROPHILS % 70.6 % (39.0-77.0); PLATELET COUNT 576 10^3/UL (140-415); RED BLOOD COUNT 3.12 10^6/ul (4.70-6.10); RED CELL DISTRIBUTION WIDTH 12.9 % (11.5-14.5)
[2018-03-04 09:26] LABS: ANION GAP 11 (8-16); BLOOD UREA NITROGEN 15 mg/dl (7-20); CALCIUM 8.2 mg/dl (8.4-10.2); CARBON DIOXIDE 30 mmol/L (21-31); CHLORIDE 99 mmol/L (97-110); CREATININE 0.88 mg/dl (0.61-1.24); GLUCOSE 115 mg/dl (70-220); MAGNESIUM 1.7 mg/dl (1.7-2.5); PHOSPHORUS 4.1 mg/dl (2.5-4.9); POTASSIUM 4.8 mmol/L (3.5-5.1); SODIUM 135 mmol/L (135-144)
[2018-03-04] MEDS: POLYETHYLENE GLYCOL 17 GM PACKET PO (15:11)
[2018-03-04 18:40] LABS: HEMATOCRIT 30.5 % (42.0-52.0); HEMOGLOBIN 9.8 g/dl (14.0-18.0)
[2018-03-04] MEDS: INSULIN GLARGINE [LANtus] 3 ML PEN SC (20:00)
[2018-03-04] MEDS: FAMOTIDINE 20 MG TAB PO (21:26)
[2018-03-05] MEDS: ACCUCHECK AT 2AM (Patients on SS coverage) XX (02:00)
[2018-03-05] MEDS: SOD CHLORIDE 0.45% 1,000 ML IV ×3 (02:30→23:13)
[2018-03-05] MEDS: hydrALAzine 20 MG INJ IV (06:09)
[2018-03-05] MEDS: HYDROCODONE/APAP (10/325) TAB PO ×2 (06:10→17:41)
[2018-03-05 06:42] LABS: ADD MAN DIFF? NO
[2018-03-05 06:47] LABS: WHITE BLOOD COUNT 16.2 10^3/ul (4.8-10.8)
[2018-03-05 06:47] LABS: BASOPHIL # 0.1 10^3/ul (0.0-0.1); BASOPHILS % 0.6 % (0.0-2.0); EOSINOPHILS # 0.7 10^3/ul (0.0-0.5); EOSINOPHILS % 4.5 % (0.0-7.0); HEMATOCRIT 32.1 % (42.0-52.0); HEMOGLOBIN 10.2 g/dl (14.0-18.0); LYMPHOCYTES # 1.2 10^3/ul (0.8-2.9); LYMPHOCYTES % 7.5 % (15.0-51.0); MEAN CORPUSCULAR HEMOGLOBIN 28.7 pg (29.0-33.0); MEAN CORPUSCULAR HGB CONC 31.8 g/dl (32.0-37.0); MEAN CORPUSCULAR VOLUME 90.4 fl (82.0-101.0); MEAN PLATELET VOLUME 9.1 fl (7.4-10.4); MONOCYTE # 1.5 10^3/ul (0.3-0.9); MONOCYTES % 9.1 % (0.0-11.0); NEUTROPHIL # 12.4 10^3/ul (1.6-7.5); NEUTROPHILS % 76.6 % (39.0-77.0); PLATELET COUNT 663 10^3/UL (140-415); RED BLOOD COUNT 3.55 10^6/ul (4.70-6.10); RED CELL DISTRIBUTION WIDTH 12.9 % (11.5-14.5)
[2018-03-05 07:06] LABS: ANION GAP 17 (8-16); BLOOD UREA NITROGEN 12 mg/dl (7-20); CALCIUM 8.8 mg/dl (8.4-10.2); CARBON DIOXIDE 27 mmol/L (21-31); CHLORIDE 98 mmol/L (97-110); GLUCOSE 109 mg/dl (70-220); MAGNESIUM 1.8 mg/dl (1.7-2.5); PHOSPHORUS 4.8 mg/dl (2.5-4.9); POTASSIUM 4.7 mmol/L (3.5-5.1); SODIUM 137 mmol/L (135-144)
[2018-03-05] MEDS: Insulin NOVOLOG SS MILD Algorithm (SS with meals and bedtime) SC ×4 (07:30→20:25)
[2018-03-05] MEDS: LACTOBACILLUS RHAMNOSUS CAP PO ×2 (08:13→20:25)
[2018-03-05] MEDS: LISINOPRIL 20 MG TAB PO ×2 (08:14→20:27)
[2018-03-05] MEDS: morphine 2 MG INJ IV ×5 (08:14→22:11)
[2018-03-05] MEDS: ASPIRIN (EC) 81 MG TAB PO (08:14)
[2018-03-05] MEDS: SPIRONOLACTONE 25 MG TAB PO (08:14)
[2018-03-05] MEDS: INSULIN ASPART [NOVOLOG] 3 ML PEN SC ×3 (08:18→17:40)
[2018-03-05] MEDS: POLYETHYLENE GLYCOL 17 GM PACKET PO (10:39)
[2018-03-05] MEDS: INSULIN GLARGINE [LANtus] 3 ML PEN SC (20:24)
[2018-03-05] MEDS: FAMOTIDINE 20 MG TAB PO (20:26)
[2018-03-05] MEDS: SENNA TAB PO (20:26)
[2018-03-05] MEDS: APIXABAN 5 MG TABLET PO (22:09)
[2018-03-06] MEDS: ACCUCHECK AT 2AM (Patients on SS coverage) XX (02:17)
[2018-03-06] MEDS: morphine 2 MG INJ IV ×2 (02:21→08:15)
[2018-03-06 07:29] LABS: ADD MAN DIFF? NO
[2018-03-06 07:34] LABS: WHITE BLOOD COUNT 15.9 10^3/ul (4.8-10.8)
[2018-03-06 07:34] LABS: ABNORMAL IP MESSAGE 1; BASOPHIL # 0.1 10^3/ul (0.0-0.1); BASOPHILS % 0.8 % (0.0-2.0); HEMATOCRIT 29.5 % (42.0-52.0); HEMOGLOBIN 9.4 g/dl (14.0-18.0); LYMPHOCYTES # 1.4 10^3/ul (0.8-2.9); MEAN CORPUSCULAR HEMOGLOBIN 28.7 pg (29.0-33.0); MEAN CORPUSCULAR HGB CONC 31.9 g/dl (32.0-37.0); MEAN CORPUSCULAR VOLUME 89.9 fl (82.0-101.0); MONOCYTE # 1.7 10^3/ul (0.3-0.9); MONOCYTES % 10.7 % (0.0-11.0); NEUTROPHIL # 11.4 10^3/ul (1.6-7.5); NEUTROPHILS % 71.9 % (39.0-77.0); PLATELET COUNT 596 10^3/UL (140-415); POSITIVE DIFF @See below; RED BLOOD COUNT 3.28 10^6/ul (4.70-6.10); RED CELL DISTRIBUTION WIDTH 12.9 % (11.5-14.5)
[2018-03-06 07:57] LABS: ANION GAP 15 (8-16); BLOOD UREA NITROGEN 13 mg/dl (7-20); CALCIUM 8.5 mg/dl (8.4-10.2); CARBON DIOXIDE 29 mmol/L (21-31); CHLORIDE 96 mmol/L (97-110); CREATININE 0.82 mg/dl (0.61-1.24); GLUCOSE 138 mg/dl (70-220); MAGNESIUM 1.7 mg/dl (1.7-2.5); PHOSPHORUS 5.5 mg/dl (2.5-4.9); POTASSIUM 4.7 mmol/L (3.5-5.1); SODIUM 135 mmol/L (135-144)
[2018-03-06] MEDS: SENNA TAB PO ×2 (08:13→20:29)
[2018-03-06] MEDS: SPIRONOLACTONE 25 MG TAB PO (08:14)
[2018-03-06] MEDS: LISINOPRIL 20 MG TAB PO ×2 (08:14→20:30)
[2018-03-06] MEDS: APIXABAN 5 MG TABLET PO (08:14)
[2018-03-06] MEDS: LACTOBACILLUS RHAMNOSUS CAP PO ×2 (08:14→20:30)
[2018-03-06] MEDS: ASPIRIN (EC) 81 MG TAB PO (08:14)
[2018-03-06] MEDS: INSULIN ASPART [NOVOLOG] 3 ML PEN SC ×3 (08:18→17:40)
[2018-03-06] MEDS: Insulin NOVOLOG SS MILD Algorithm (SS with meals and bedtime) SC ×4 (08:18→20:25)
[2018-03-06] MEDS: HYDROCODONE/APAP (10/325) TAB PO ×3 (10:49→20:22)
[2018-03-06] MEDS: HYDROmorphONE 0.5 MG/0.5 ML SYG IV ×3 (12:28→22:13)
[2018-03-06] MEDS: SOD CHLORIDE 0.45% 1,000 ML IV (15:35)
[2018-03-06] MEDS: FAMOTIDINE 20 MG TAB PO (20:29)
[2018-03-06] MEDS: INSULIN GLARGINE [LANtus] 3 ML PEN SC (20:33)
[2018-03-07] MEDS: ACCUCHECK AT 2AM (Patients on SS coverage) XX (01:36)
[2018-03-07] MEDS: HYDROCODONE/APAP (10/325) TAB PO ×2 (01:40→09:25)
[2018-03-07] MEDS: SOD CHLORIDE 0.45% 1,000 ML IV ×2 (04:30→16:45)
[2018-03-07] MEDS: HYDROmorphONE 0.5 MG/0.5 ML SYG IV ×3 (05:25→16:47)
[2018-03-07 06:02] LABS: ADD MAN DIFF? NO
[2018-03-07 06:06] LABS: WHITE BLOOD COUNT 16.4 10^3/ul (4.8-10.8)
[2018-03-07 06:06] LABS: ABNORMAL IP MESSAGE 1; BASOPHIL # 0.1 10^3/ul (0.0-0.1); BASOPHILS % 0.6 % (0.0-2.0); EOSINOPHILS # 1.1 10^3/ul (0.0-0.5); EOSINOPHILS % 6.4 % (0.0-7.0); HEMATOCRIT 26.4 % (42.0-52.0); HEMOGLOBIN 8.5 g/dl (14.0-18.0); LYMPHOCYTES # 1.5 10^3/ul (0.8-2.9); LYMPHOCYTES % 9.1 % (15.0-51.0); MEAN CORPUSCULAR HEMOGLOBIN 28.7 pg (29.0-33.0); MEAN CORPUSCULAR HGB CONC 32.2 g/dl (32.0-37.0); MEAN CORPUSCULAR VOLUME 89.2 fl (82.0-101.0); MEAN PLATELET VOLUME 9.2 fl (7.4-10.4); MONOCYTE # 1.8 10^3/ul (0.3-0.9); MONOCYTES % 10.8 % (0.0-11.0); NEUTROPHIL # 11.7 10^3/ul (1.6-7.5); NEUTROPHILS % 71.5 % (39.0-77.0); PLATELET COUNT 555 10^3/UL (140-415); POSITIVE DIFF @See below; RED BLOOD COUNT 2.96 10^6/ul (4.70-6.10); RED CELL DISTRIBUTION WIDTH 13.2 % (11.5-14.5)
[2018-03-07 06:27] LABS: ANION GAP 11 (8-16); BLOOD UREA NITROGEN 13 mg/dl (7-20); CALCIUM 8.6 mg/dl (8.4-10.2); CARBON DIOXIDE 29 mmol/L (21-31); CHLORIDE 99 mmol/L (97-110); CREATININE 0.88 mg/dl (0.61-1.24); GLUCOSE 142 mg/dl (70-220); MAGNESIUM 1.7 mg/dl (1.7-2.5); POTASSIUM 4.6 mmol/L (3.5-5.1); SODIUM 134 mmol/L (135-144)
[2018-03-07] MEDS: Insulin NOVOLOG SS MILD Algorithm (SS with meals and bedtime) SC ×4 (07:30→21:00)
[2018-03-07] MEDS: ASPIRIN (EC) 81 MG TAB PO (08:12)
[2018-03-07] MEDS: INSULIN ASPART [NOVOLOG] 3 ML PEN SC ×3 (08:12→18:04)
[2018-03-07] MEDS: LACTOBACILLUS RHAMNOSUS CAP PO ×2 (08:12→21:28)
[2018-03-07] MEDS: SPIRONOLACTONE 25 MG TAB PO (08:12)
[2018-03-07] MEDS: SENNA TAB PO (08:12)
[2018-03-07] MEDS: POLYETHYLENE GLYCOL 17 GM PACKET PO (08:13)
[2018-03-07] MEDS: LISINOPRIL 20 MG TAB PO ×2 (08:13→21:30)
[2018-03-07] MEDS: SENNA/DOCUSATE NA (8.6MG/50MG) TAB PO (11:13)
[2018-03-07] MEDS: BISACODYL (EC) 5 MG TAB PO (17:55)
[2018-03-07] MEDS: INSULIN GLARGINE [LANtus] 3 ML PEN SC (20:00)
[2018-03-07] MEDS: FAMOTIDINE 20 MG TAB PO (21:28)
[2018-03-08] MEDS: DEXTROSE 5%-0.45% NACL 1,000 ML IV ×3 (01:34→20:30)
[2018-03-08] MEDS: HYDROCODONE/APAP (10/325) TAB PO ×2 (01:35→11:29)
[2018-03-08] MEDS: ACCUCHECK AT 2AM (Patients on SS coverage) XX (01:50)
[2018-03-08 06:59] LABS: ADD MAN DIFF? NO
[2018-03-08 07:11] LABS: ABNORMAL IP MESSAGE 1; BASOPHIL # 0.1 10^3/ul (0.0-0.1); BASOPHILS % 0.4 % (0.0-2.0); EOSINOPHILS # 0.5 10^3/ul (0.0-0.5); EOSINOPHILS % 2.8 % (0.0-7.0); HEMOGLOBIN 8.7 g/dl (14.0-18.0); LYMPHOCYTES # 1.4 10^3/ul (0.8-2.9); LYMPHOCYTES % 7.3 % (15.0-51.0); MEAN CORPUSCULAR HGB CONC 32.2 g/dl (32.0-37.0); MEAN PLATELET VOLUME 9.3 fl (7.4-10.4); MONOCYTE # 1.9 10^3/ul (0.3-0.9); NEUTROPHIL # 14.9 10^3/ul (1.6-7.5); NEUTROPHILS % 78.4 % (39.0-77.0); PLATELET COUNT 562 10^3/UL (140-415); POSITIVE DIFF @See below; RED CELL DISTRIBUTION WIDTH 13.2 % (11.5-14.5)
[2018-03-08 07:23] LABS: ANION GAP 14 (8-16); BLOOD UREA NITROGEN 11 mg/dl (7-20); CALCIUM 8.4 mg/dl (8.4-10.2); CARBON DIOXIDE 27 mmol/L (21-31); CHLORIDE 98 mmol/L (97-110); CREATININE 0.83 mg/dl (0.61-1.24); GLUCOSE 151 mg/dl (70-220); MAGNESIUM 1.7 mg/dl (1.7-2.5); PHOSPHORUS 4.6 mg/dl (2.5-4.9); POTASSIUM 4.6 mmol/L (3.5-5.1); SODIUM 134 mmol/L (135-144)
[2018-03-08] MEDS: INSULIN ASPART [NOVOLOG] 3 ML PEN SC ×3 (07:50→18:05)
[2018-03-08] MEDS: Insulin NOVOLOG SS MILD Algorithm (SS with meals and bedtime) SC ×4 (08:39→21:04)
[2018-03-08] MEDS: ASPIRIN (EC) 81 MG TAB PO (09:00)
[2018-03-08] MEDS: LACTOBACILLUS RHAMNOSUS CAP PO ×2 (09:04→21:06)
[2018-03-08] MEDS: SPIRONOLACTONE 25 MG TAB PO (09:04)
[2018-03-08] MEDS: DOCUSATE SODIUM 100 MG CAP PO (09:04)
[2018-03-08] MEDS: LISINOPRIL 20 MG TAB PO ×2 (09:04→21:05)
[2018-03-08] MEDS: MAGNESIUM SULFATE 2 GM/50 ML 50 ML IVPB (12:59)
[2018-03-08] MEDS ORDERED: POLYMYXIN/BACITRACIN 1L IRRIG (14:56)
[2018-03-08] MEDS ORDERED: PROPOFOL 20 ML (16:45)
[2018-03-08] MEDS ORDERED: FENTAnyl 50 MCG/ML VIAL (16:46)
[2018-03-08] MEDS ORDERED: MIDAZOLAM 1 MG/ML 2 ML INJ (16:46)
[2018-03-08] MEDS ORDERED: ONDANSETRON 4 MG INJ (16:46)
[2018-03-08] MEDS ORDERED: METOCLOPRAMIDE 10 MG INJ (16:46)
[2018-03-08] MEDS ORDERED: EPHEDrine SULFATE 50 MG/5 ML SYG ×2 (16:58→17:40)
[2018-03-08] MEDS ORDERED: ROPIVACAINE 0.5 % 30 ML VIAL (16:58)
[2018-03-08] MEDS ORDERED: BUPIVACAINE 0.5% (SDV) 30 ML INJ (17:09)
[2018-03-08] MEDS ORDERED: ONDANSETRON 4 MG INJ IV (17:30)
[2018-03-08] MEDS ORDERED: EPHEDrine SULFATE 50 MG/5 ML SYG IV (17:30)
[2018-03-08] MEDS ORDERED: HYDROmorphONE (0.2 MG/ML) 10ML SYG IV ×3 (17:30)
[2018-03-08] MEDS: INSULIN GLARGINE [LANtus] 3 ML PEN SC (20:00)
[2018-03-08] MEDS: HYDROmorphONE 0.5 MG/0.5 ML SYG IV (21:06)
[2018-03-08] MEDS: FAMOTIDINE 20 MG TAB PO (21:06)
[2018-03-09] MEDS: ACCUCHECK AT 2AM (Patients on SS coverage) XX (02:00)
[2018-03-09] MEDS: Insulin NOVOLOG SS MILD Algorithm (SS with meals and bedtime) SC ×4 (07:30→20:32)
[2018-03-09] MEDS: INSULIN ASPART [NOVOLOG] 3 ML PEN SC ×3 (08:17→18:02)
[2018-03-09] MEDS: DEXTROSE 5%-0.45% NACL 1,000 ML IV ×2 (08:53→20:32)
[2018-03-09] MEDS: ASPIRIN (EC) 81 MG TAB PO (08:54)
[2018-03-09] MEDS: LACTOBACILLUS RHAMNOSUS CAP PO ×2 (08:54→20:32)
[2018-03-09] MEDS: SPIRONOLACTONE 25 MG TAB PO (08:55)
[2018-03-09] MEDS: LISINOPRIL 20 MG TAB PO ×2 (08:56→20:30)
[2018-03-09] MEDS: HYDROmorphONE 0.5 MG/0.5 ML SYG IV ×3 (09:02→20:36)
[2018-03-09 09:09] LABS: ADD MAN DIFF? NO
[2018-03-09 09:15] LABS: WHITE BLOOD COUNT 17.8 10^3/ul (4.8-10.8)
[2018-03-09 09:15] LABS: ABNORMAL IP MESSAGE 1; BASOPHIL # 0.1 10^3/ul (0.0-0.1); BASOPHILS % 0.4 % (0.0-2.0); EOSINOPHILS # 0.7 10^3/ul (0.0-0.5); EOSINOPHILS % 4.2 % (0.0-7.0); HEMATOCRIT 28.1 % (42.0-52.0); HEMOGLOBIN 8.8 g/dl (14.0-18.0); LYMPHOCYTES # 1.3 10^3/ul (0.8-2.9); LYMPHOCYTES % 7.5 % (15.0-51.0); MEAN CORPUSCULAR HEMOGLOBIN 28.3 pg (29.0-33.0); MEAN CORPUSCULAR HGB CONC 31.3 g/dl (32.0-37.0); MEAN CORPUSCULAR VOLUME 90.4 fl (82.0-101.0); MEAN PLATELET VOLUME 9.4 fl (7.4-10.4); MONOCYTE # 1.5 10^3/ul (0.3-0.9); MONOCYTES % 8.5 % (0.0-11.0); NEUTROPHILS % 78.5 % (39.0-77.0); PLATELET COUNT 572 10^3/UL (140-415); POSITIVE DIFF @See below; RED BLOOD COUNT 3.11 10^6/ul (4.70-6.10); RED CELL DISTRIBUTION WIDTH 13.1 % (11.5-14.5)
[2018-03-09 09:44] LABS: ANION GAP 12 (8-16); BLOOD UREA NITROGEN 11 mg/dl (7-20); CALCIUM 8.3 mg/dl (8.4-10.2); CARBON DIOXIDE 28 mmol/L (21-31); CHLORIDE 99 mmol/L (97-110); CREATININE 0.84 mg/dl (0.61-1.24); GLUCOSE 134 mg/dl (70-220); PHOSPHORUS 4.5 mg/dl (2.5-4.9); POTASSIUM 5.1 mmol/L (3.5-5.1); SODIUM 134 mmol/L (135-144)
[2018-03-09] MEDS: INSULIN GLARGINE [LANtus] 3 ML PEN SC (20:29)
[2018-03-09] MEDS: FAMOTIDINE 20 MG TAB PO (20:30)
[2018-03-10] MEDS: HYDROmorphONE 0.5 MG/0.5 ML SYG IV ×3 (00:42→10:15)
[2018-03-10] MEDS: Insulin NOVOLOG SS MILD Algorithm (SS with meals and bedtime) SC ×4 (07:30→20:52)
[2018-03-10 07:55] LABS: ADD MAN DIFF? NO
[2018-03-10 07:58] LABS: BASOPHIL # 0.1 10^3/ul (0.0-0.1); BASOPHILS % 0.7 % (0.0-2.0); EOSINOPHILS # 0.9 10^3/ul (0.0-0.5); EOSINOPHILS % 6.5 % (0.0-7.0); HEMATOCRIT 28.4 % (42.0-52.0); HEMOGLOBIN 9.3 g/dl (14.0-18.0); LYMPHOCYTES # 1.4 10^3/ul (0.8-2.9); LYMPHOCYTES % 10.3 % (15.0-51.0); MEAN CORPUSCULAR HEMOGLOBIN 29.2 pg (29.0-33.0); MEAN CORPUSCULAR HGB CONC 32.7 g/dl (32.0-37.0); MEAN CORPUSCULAR VOLUME 89.3 fl (82.0-101.0); MEAN PLATELET VOLUME 8.8 fl (7.4-10.4); MONOCYTE # 1.3 10^3/ul (0.3-0.9); MONOCYTES % 9.2 % (0.0-11.0); NEUTROPHIL # 9.8 10^3/ul (1.6-7.5); NEUTROPHILS % 72.1 % (39.0-77.0); PLATELET COUNT 509 10^3/UL (140-415); RED BLOOD COUNT 3.18 10^6/ul (4.70-6.10); RED CELL DISTRIBUTION WIDTH 12.9 % (11.5-14.5)
[2018-03-10 07:58] LABS: WHITE BLOOD COUNT 13.6 10^3/ul (4.8-10.8)
[2018-03-10] MEDS: SPIRONOLACTONE 25 MG TAB PO (08:10)
[2018-03-10] MEDS: LISINOPRIL 20 MG TAB PO ×2 (08:10→20:53)
[2018-03-10] MEDS: ASPIRIN (EC) 81 MG TAB PO (08:12)
[2018-03-10] MEDS: LACTOBACILLUS RHAMNOSUS CAP PO ×2 (08:12→20:53)
[2018-03-10] MEDS: INSULIN ASPART [NOVOLOG] 3 ML PEN SC ×3 (08:14→17:41)
[2018-03-10 08:22] LABS: ALBUMIN 3.1 g/dl (3.3-4.9); ANION GAP 14 (8-16); BLOOD UREA NITROGEN 12 mg/dl (7-20); CALCIUM 8.5 mg/dl (8.4-10.2); CARBON DIOXIDE 27 mmol/L (21-31); CHLORIDE 99 mmol/L (97-110); CREATININE 0.84 mg/dl (0.61-1.24); GLUCOSE 131 mg/dl (70-220); MAGNESIUM 1.8 mg/dl (1.7-2.5); PHOSPHORUS 4.7 mg/dl (2.5-4.9); POTASSIUM 4.7 mmol/L (3.5-5.1); SODIUM 135 mmol/L (135-144)
[2018-03-10] MEDS: LORAZEPAM 0.5 MG TAB PO ×2 (08:22→20:54)
[2018-03-10] MEDS: HYDROCODONE/APAP (10/325) TAB PO ×2 (08:23→20:54)
[2018-03-10] MEDS: MAGNESIUM SULFATE 2 GM/50 ML 50 ML IVPB (09:13)
[2018-03-10] MEDS: INSULIN GLARGINE [LANtus] 3 ML PEN SC (20:50)
[2018-03-10] MEDS: FAMOTIDINE 20 MG TAB PO (20:53)
[2018-03-10] MEDS: ONDANSETRON 4 MG INJ IV (20:55)
[2018-03-10] MEDS: APIXABAN 5 MG TABLET PO (21:46)
[2018-03-11] MEDS: HYDROmorphONE 0.5 MG/0.5 ML SYG IV (02:13)
[2018-03-11] MEDS: Insulin NOVOLOG SS MILD Algorithm (SS with meals and bedtime) SC ×4 (07:30→21:00)
[2018-03-11 07:55] LABS: ADD MAN DIFF? NO
[2018-03-11 08:06] LABS: BASOPHIL # 0.1 10^3/ul (0.0-0.1); BASOPHILS % 0.7 % (0.0-2.0); EOSINOPHILS % 6.9 % (0.0-7.0); HEMATOCRIT 28.5 % (42.0-52.0); LYMPHOCYTES # 1.7 10^3/ul (0.8-2.9); LYMPHOCYTES % 11.1 % (15.0-51.0); MEAN CORPUSCULAR HEMOGLOBIN 28.3 pg (29.0-33.0); MEAN CORPUSCULAR HGB CONC 31.6 g/dl (32.0-37.0); MEAN CORPUSCULAR VOLUME 89.6 fl (82.0-101.0); MONOCYTE # 1.4 10^3/ul (0.3-0.9); MONOCYTES % 9.2 % (0.0-11.0); NEUTROPHIL # 10.6 10^3/ul (1.6-7.5); NEUTROPHILS % 70.9 % (39.0-77.0); PLATELET COUNT 534 10^3/UL (140-415); RED BLOOD COUNT 3.18 10^6/ul (4.70-6.10)
[2018-03-11 08:06] LABS: WHITE BLOOD COUNT 14.9 10^3/ul (4.8-10.8)
[2018-03-11] MEDS: LISINOPRIL 20 MG TAB PO ×2 (08:15→21:39)
[2018-03-11] MEDS: SPIRONOLACTONE 25 MG TAB PO (08:15)
[2018-03-11] MEDS: INSULIN ASPART [NOVOLOG] 3 ML PEN SC ×3 (08:15→17:21)
[2018-03-11] MEDS: APIXABAN 5 MG TABLET PO ×2 (08:16→21:39)
[2018-03-11] MEDS: LACTOBACILLUS RHAMNOSUS CAP PO ×2 (08:16→21:39)
[2018-03-11] MEDS: ASPIRIN (EC) 81 MG TAB PO (08:16)
[2018-03-11 08:26] LABS: ALBUMIN 2.9 g/dl (3.3-4.9); ANION GAP 12 (8-16); BLOOD UREA NITROGEN 14 mg/dl (7-20); CALCIUM 8.5 mg/dl (8.4-10.2); CARBON DIOXIDE 28 mmol/L (21-31); CHLORIDE 99 mmol/L (97-110); CREATININE 0.88 mg/dl (0.61-1.24); GLUCOSE 95 mg/dl (70-220); MAGNESIUM 1.9 mg/dl (1.7-2.5); PHOSPHORUS 4.3 mg/dl (2.5-4.9); POTASSIUM 4.6 mmol/L (3.5-5.1); SODIUM 134 mmol/L (135-144)
[2018-03-11] MEDS: FAMOTIDINE 20 MG TAB PO (21:39)
[2018-03-11] MEDS: INSULIN GLARGINE [LANtus] 3 ML PEN SC (21:43)
[2018-03-11] MEDS: HYDROCODONE/APAP (10/325) TAB PO (23:20)
[2018-03-12 06:14] LABS: ADD MAN DIFF? NO
[2018-03-12 06:21] LABS: BASOPHIL # 0.1 10^3/ul (0.0-0.1); BASOPHILS % 0.8 % (0.0-2.0); EOSINOPHILS # 0.9 10^3/ul (0.0-0.5); EOSINOPHILS % 5.9 % (0.0-7.0); HEMATOCRIT 29.5 % (42.0-52.0); HEMOGLOBIN 9.7 g/dl (14.0-18.0); LYMPHOCYTES # 1.6 10^3/ul (0.8-2.9); LYMPHOCYTES % 10.9 % (15.0-51.0); MEAN CORPUSCULAR HEMOGLOBIN 28.8 pg (29.0-33.0); MEAN CORPUSCULAR HGB CONC 32.9 g/dl (32.0-37.0); MEAN CORPUSCULAR VOLUME 87.5 fl (82.0-101.0); MONOCYTE # 1.4 10^3/ul (0.3-0.9); MONOCYTES % 9.6 % (0.0-11.0); NEUTROPHIL # 10.7 10^3/ul (1.6-7.5); NEUTROPHILS % 71.7 % (39.0-77.0); PLATELET COUNT 536 10^3/UL (140-415); RED BLOOD COUNT 3.37 10^6/ul (4.70-6.10); RED CELL DISTRIBUTION WIDTH 13.1 % (11.5-14.5)
[2018-03-12 06:21] LABS: WHITE BLOOD COUNT 14.9 10^3/ul (4.8-10.8)
[2018-03-12 06:56] LABS: ANION GAP 12 (8-16); BLOOD UREA NITROGEN 12 mg/dl (7-20); CALCIUM 8.7 mg/dl (8.4-10.2); CARBON DIOXIDE 27 mmol/L (21-31); CHLORIDE 101 mmol/L (97-110); GLUCOSE 79 mg/dl (70-220); MAGNESIUM 1.9 mg/dl (1.7-2.5); PHOSPHORUS 4.7 mg/dl (2.5-4.9); POTASSIUM 4.3 mmol/L (3.5-5.1); SODIUM 136 mmol/L (135-144)
[2018-03-12] MEDS: Insulin NOVOLOG SS MILD Algorithm (SS with meals and bedtime) SC ×2 (07:30→13:05)
[2018-03-12] MEDS: LACTOBACILLUS RHAMNOSUS CAP PO (08:38)
[2018-03-12] MEDS: SPIRONOLACTONE 25 MG TAB PO (08:39)
[2018-03-12] MEDS: LISINOPRIL 20 MG TAB PO (08:39)
[2018-03-12] MEDS: ASPIRIN (EC) 81 MG TAB PO (08:39)
[2018-03-12] MEDS: INSULIN ASPART [NOVOLOG] 3 ML PEN SC ×2 (08:41→13:03)
[2018-03-12] MEDS: APIXABAN 5 MG TABLET PO (08:41)
[2018-03-12] MEDS: HYDROmorphONE 0.5 MG/0.5 ML SYG IV (11:09)
[2018-03-12] MEDS: HYDROCODONE/APAP (10/325) TAB PO (13:02)
== END 2018-03-12 17:00 | DRG 240 ==
LOC: ICU 02-25 11:50 → E/R 07:44 → MS4 02-25 13:19 → ICU 02-25 13:34 → MS4 12:47 → ICU 02-25 15:38
PROC: 041K09Q Bypass Right Femoral Artery to Lower Extremity Artery with Autologous Venous Tissue, Open Approach (ICD-10-PCS; principal; 2018-02-21 09:52)
PROC: 0Y6M0Z9 Detachment at Right Foot, Partial 1st Ray, Open Approach (ICD-10-PCS; 2018-02-21 09:52)
PROC: 0Y6M0ZB Detachment at Right Foot, Partial 2nd Ray, Open Approach (ICD-10-PCS; 2018-02-21 09:52)
PROC: 0Y6M0ZC Detachment at Right Foot, Partial 3rd Ray, Open Approach (ICD-10-PCS; 2018-02-21 09:52)
PROC: 0Y6M0ZD Detachment at Right Foot, Partial 4th Ray, Open Approach (ICD-10-PCS; 2018-02-21 09:52)
PROC: 0Y6M0ZF Detachment at Right Foot, Partial 5th Ray, Open Approach (ICD-10-PCS; 2018-02-21 09:52)
PROC: 0QBN0ZZ Excision of Right Metatarsal, Open Approach (ICD-10-PCS; 2018-02-21 09:52)
PROC: B400YZZ Plain Radiography of Abdominal Aorta using Other Contrast (ICD-10-PCS; 2018-02-21 09:52)
PROC: B40FYZZ Plain Radiography of Right Lower Extremity Arteries using Other Contrast (ICD-10-PCS; 2018-02-21 09:52)
DX: I70.221 Atherosclerosis of native arteries of extremities with rest pain, right leg (principal); I70.261 Atherosclerosis of native arteries of extremities with gangrene, right leg; I50.20 Unspecified systolic (congestive) heart failure; I69.354 Hemiplegia and hemiparesis following cerebral infarction affecting left non-dominant side; D62 Acute posthemorrhagic anemia; I47.2 Ventricular tachycardia; I42.9 Cardiomyopathy, unspecified; I11.0 Hypertensive heart disease with heart failure; E11.42 Type 2 diabetes mellitus with diabetic polyneuropathy; E78.5 Hyperlipidemia, unspecified; D72.829 Elevated white blood cell count, unspecified; I73.9 Peripheral vascular disease, unspecified; I25.10 Atherosclerotic heart disease of native coronary artery without angina pectoris; R07.89 Other chest pain; R94.31 Abnormal electrocardiogram [ECG] [EKG]; I25.2 Old myocardial infarction; Z91.14 Patient's other noncompliance with medication regimen; Z87.891 Personal history of nicotine dependence; Z95.1 Presence of aortocoronary bypass graft; Z79.02 Long term (current) use of antithrombotics/antiplatelets; Z79.4 Long term (current) use of insulin
CPT/HCPCS: 36246; 36415; 71045; 73620; 73630; 75635; 75710; 76536; 78452; 80048; 80053; 80061; 80069; 80306; 81001; 82550; 82553; 82962; 83036; 83735; 83880; 84100; 84439; 84443; 84484; 85014; 85018; 85025; 85610; 85730; 86850; 86900; 86901; 87040; 88304; 88307; 93005; 93017; 93306; 93923; 96374; 96375; 97110; 97116; 97162; 97530; 99291-25